=== PATIENT | male | born 1985 | race Two or more races ===

== ENCOUNTER 2018-10-04 10:08 | Emergency (ER) | payer SELFPAY ==
[~2018-10-04] VITALS: Ht 180.3 cm; Wt 136.1 kg
[2018-10-04 10:27] VITALS: Ht 180.3 cm; Wt 136.1 kg
[2018-10-04 12:53] VITALS: BP 145/87
== END 2018-10-04 12:53 | disposition home or self-care (01) ==
LOC: ED 10:08
DX: J06.9 Acute upper respiratory infection, unspecified (principal); J45.909 Unspecified asthma, uncomplicated; F15.90 Other stimulant use, unspecified, uncomplicated; F17.210 Nicotine dependence, cigarettes, uncomplicated
CPT/HCPCS: Q0092

== ENCOUNTER 2018-12-02 19:54 | Emergency (ER) | payer OTHER ==
[~2018-12-02] VITALS: Ht 188 cm; Wt 133.4 kg
[2018-12-02 20:00] VITALS: Ht 188 cm; Wt 133.4 kg
[2018-12-02 20:37] LABS: BASOPHIL % 0.4 % (0-2); PLATELET COUNT 265 x10^3mcL (130-400); RED CELL DISTRIBUTION WIDTH 13.8 % (11.5-14.5)
[2018-12-02 20:56] LABS: CARBON DIOXIDE 29.2 mmol/L (21-32); CHLORIDE SERUM 101 mmol/L (98-107); CREATININE SERUM 1.1 mg/dL (0.7-1.3); GFR1 > 60 mL/min; GLUCOSE SERUM 126 mg/dL (74-106); SODIUM SERUM 140 mmol/L (136-145)
[2018-12-02 20:59] LABS: ALBUMIN 4.5 g/dL (3.4-5.0); ALKALINE PHOSPHATASE 81 U/L (46-116); ALT/SGPT 117 U/L (16-63); AST/SGOT 58 U/L (15-37); BILIRUBIN TOTAL 0.78 mg/dL (0.20-1.00); CHOLESTEROL 181 mg/dL (<200); CHOLESTEROL/HDL RATIO 3.6; HDL CHOLESTEROL 50 mg/dL (40-60); LIPASE 142 IU/L (73-393); TOTAL PROTEIN, SERUM 8.2 g/dL (6.4-8.2); TRIGLYCERIDES 52 mg/dL (<150)
[2018-12-02 21:04] LABS: T3 TOTAL 1.15 ng/mL
[2018-12-02 21:07] LABS: FREE T4 1.06 ng/dL (0.76-1.46); FREE THYROXINE INDEX 2.7 ug/dL (1.4-4.5); T4(THYROXINE) 7.6 ug/dL (4.7-13.3)
[2018-12-02 22:07] VITALS: BP 138/75
== END 2018-12-02 22:07 | disposition home or self-care (01) ==
LOC: ED 19:54
PROVIDERS: Specialist
DX: R07.89 Other chest pain (principal); M79.602 Pain in left arm; F15.10 Other stimulant abuse, uncomplicated; J45.909 Unspecified asthma, uncomplicated; X58.XXXA Exposure to other specified factors, initial encounter; Y93.67 Activity, basketball; Y92.89 Other specified places as the place of occurrence of the external cause; Y99.8 Other external cause status
CPT/HCPCS: 36415; 83880; 84439; G0480; J7030; Q0092

== ENCOUNTER 2019-04-27 06:04 | Emergency (ER) | payer OTHER ==
[~2019-04-27] VITALS: Ht 188 cm; Wt 129.3 kg
[2019-04-27 06:49] VITALS: BP 168/84
== END 2019-04-27 06:49 | disposition home or self-care (01) ==
LOC: ED 06:04
DX: G47.33 Obstructive sleep apnea (adult) (pediatric) (principal); J45.909 Unspecified asthma, uncomplicated

== ENCOUNTER 2019-10-31 18:17 | Emergency (ER) | payer OTHER ==
[~2019-10-31] VITALS: Ht 188 cm; Wt 93.0 kg
[2019-10-31 19:02] VITALS: Ht 188 cm; Wt 93.0 kg
[2019-10-31 19:51] LABS: BASOPHIL % 0.4 % (0-2); PLATELET COUNT 243 x10^3mcL (130-400); RED CELL DISTRIBUTION WIDTH 14.1 % (11.5-14.5)
[2019-10-31 20:07] LABS: CALCIUM 8.9 mg/dL (8.5-10.1); CARBON DIOXIDE 24.9 mmol/L (21-32); CHLORIDE SERUM 101 mmol/L (98-107); CREATININE SERUM 0.9 mg/dL (0.7-1.3); GFR1 > 60 mL/min; GLUCOSE SERUM 111 mg/dL (74-106); POTASSIUM SERUM 3.8 mmol/L (3.5-5.1); SODIUM SERUM 138 mmol/L (136-145)
[2019-10-31 20:12] LABS: ALBUMIN 4.5 g/dL (3.4-5.0); ALKALINE PHOSPHATASE 76 U/L (46-116); ALT/SGPT 83 U/L (16-63); AST/SGOT 47 U/L (15-37); BILIRUBIN TOTAL 1.1 mg/dL (0.20-1.00); LIPASE 112 IU/L (73-393)
[2019-10-31 20:14] LABS: TOTAL PROTEIN, SERUM 8.6 g/dL (6.4-8.2)
[2019-10-31 23:46] VITALS: BP 150/99
== END 2019-10-31 23:47 | disposition home or self-care (01) ==
LOC: ED 18:17
PROVIDERS: Emergency Medicine
DX: R10.816 Epigastric abdominal tenderness (principal); R11.10 Vomiting, unspecified; R19.7 Diarrhea, unspecified; J45.909 Unspecified asthma, uncomplicated; F15.90 Other stimulant use, unspecified, uncomplicated
CPT/HCPCS: 36415; J2270; Q0162

== ENCOUNTER 2020-03-08 09:48 | Emergency (ER) | payer OTHER ==
[~2020-03-08] VITALS: Ht 188 cm; Wt 146.5 kg
[2020-03-08 09:57] VITALS: Ht 188 cm; Wt 146.5 kg
[2020-03-08 11:53] VITALS: BP 131/71
== END 2020-03-08 11:53 | disposition home or self-care (01) ==
LOC: ED 09:48
DX: S61.011A Laceration without foreign body of right thumb without damage to nail, initial encounter (principal); S61.206A Unspecified open wound of right little finger without damage to nail, initial encounter; J45.909 Unspecified asthma, uncomplicated; F15.10 Other stimulant abuse, uncomplicated; W23.0XXA Caught, crushed, jammed, or pinched between moving objects, initial encounter; Y93.89 Activity, other specified; Y92.092 Bedroom in other non-institutional residence as the place of occurrence of the external cause; Y99.8 Other external cause status
CPT/HCPCS: J2001

== ENCOUNTER 2020-03-18 18:18 | Emergency (ER) | payer OTHER ==
[~2020-03-18] VITALS: Ht 188 cm; Wt 149.2 kg
[2020-03-18 18:24] VITALS: Ht 188 cm; Wt 149.2 kg
[2020-03-18 18:51] VITALS: BP 164/105
== END 2020-03-18 18:51 | disposition home or self-care (01) ==
LOC: ED 18:18
DX: S61.011D Laceration without foreign body of right thumb without damage to nail, subsequent encounter (principal); J45.909 Unspecified asthma, uncomplicated; X58.XXXD Exposure to other specified factors, subsequent encounter